=== PATIENT | male | born 1995 | race African-American/Black ===

== ENCOUNTER 2018-03-29 15:02 | Emergency (ER) | payer OTHER ==
[2018-03-29 15:25] VITALS: BP 100/57; PULSE 85; RESP 18; TEMP 98.3
--- NOTE | 2018-03-29 16:06 | ED ---
ENT HPI - General Chief complaint: ENT Stated complaint: Ear Pain Time Seen by Provider: 03/29/18 15:27 Source: patient, RN notes reviewed Mode of arrival: ambulatory Limitations: no limitations - History of Present Illness Initial comments: This a 22-year-old male with no past medical history presents today for chief complaint of right ear discomfort. Patient states that for the past 2 days he has is pain in his right ear and decreased hearing. He denies drainage from the ear, masses in front or behind the auricle, pain to palpation of the posterior ear, foreign body, dizziness, tinnitus, jaw pain, visual changes, rashes/lesions, fever, chills, sore throat, chest pain, shortness of breath, congestion, cough or any other symptoms. Patient is not tried anything in attempt to alleviate the pain. Patient presents today for evaluation. - Related Data Previous Rx's Medication Instructions Recorded Amoxicillin 500 mg PO Q12HR 7 Days #14 cap 03/29/18 Allergies Allergy/AdvReac Type Severity Reaction Status Date / Time No Known Allergies Allergy Verified 03/29/18 15:25 Review of Systems ROS Statement: Those systems with pertinent positive or pertinent negative responses have been documented in the HPI. ROS Other: All systems not noted in ROS Statement are negative. Constitutional: Denies: fever, chills, night sweats Eyes: Denies: eye discharge, vision change ENT: Reports: ear pain, hearing loss (decreased hearing). Denies: throat pain Respiratory: Denies: cough, dyspnea, wheezes, hemoptysis, stridor Cardiovascular: Denies: chest pain, palpitations Gastrointestinal: Denies: abdominal pain Genitourinary: Denies: urgency, dysuria Skin: Denies: rash, lesions Neurological: Denies: headache, weakness, confusion, vertigo Past Medical History Past Medical History: No Reported History History of Any Multi-Drug Resistant Organisms: None Reported Past Surgical History: No Surgical Hx Reported Past Psychological History: No Psychological Hx Reported Smoking Status: Never smoker Past Alcohol Use History: None Reported Past Drug Use History: Marijuana General Exam - General Exam Comments Initial Comments: General: The patient is awake and alert, in no distress, and does not appear acutely ill. Eye: Pupils are equal, round and reactive to light, extra-ocular movements are intact. No nystagmus. There is normal conjunctiva bilaterally. No signs of icterus. Ears, nose, mouth and throat: There are moist mucous membranes and no oral lesions. Excessive cerumen in the right ear however TM is visible it is pearly, cone of light and malleus present. No retract, bulging or erythema. EAC WNL of the ears b/l. TM no visible upon initial exam, cerumen impaction. No tenderness to palpation of the mastoid b/l. No preauricular LN b/l. Neck: The neck is supple, there is no tenderness or JVD. Cardiovascular: There is a regular rate and rhythm. No murmur, rub or gallop is appreciated. Respiratory: Lungs are clear to auscultation, respirations are non-labored, breath sounds are equal. No wheezes, stridor, rales, or rhonchi. Neurological: A&O x 3. CN II-XII intact, There are no obvious motor or sensory deficits. Coordination appears grossly intact. Speech is normal. Skin: Skin is warm and dry and no rashes or lesions are noted. Psychiatric: Cooperative, appropriate mood & affect, normal judgment. Limitations: no limitations Course Vital Signs 03/29/18 03/29/18 15:22 17:31 Temperature 98.3 F 98.3 F Pulse Rate 85 85 Respiratory 18 18 Rate Blood Pressure 100/57 100/57 O2 Sat by Pulse 99 99 Oximetry Medical Decision Making - Medical Decision Making Left ear was irrigated using 1/2 peroxide and water at room temperature by nursing staff. A moderate amount of cerumen was removed. Pt did not want to continue due to discomfort. A small portion of the TM was visualized, it was erythematous. This could have been caused by the irrigation process however given pt complaint of left ear pain, we gave amoxicillin for treatment of possible underlying AOM. Because full TM was no visualized pt was instructed to avoid water for possible TM perforation until clearance by primary provider, he understood instruction. Pt denied allergies, and agreed with plan. Case discussed with Dr. Rodriguez, pt was discharged in stable condition. Disposition Clinical Impression: Impacted cerumen, Otitis media Disposition: HOME SELF-CARE Condition: Good Instructions: Cerumen Impaction (ED), Ear Infection (ED) Additional Instructions: Please use medication as discussed. Please follow-up with referral as directed in the next 2 days of symptoms have not improved. Please return to emergency room if the symptoms increase or worsen or for any other concerns. Prescriptions: Amoxicillin 500 mg PO Q12HR 7 Days #14 cap Is patient prescribed a controlled substance at d/c from ED?: No Referrals: [facility] [NON-STAFF] - 1-2 days Time of Disposition: 17:21
== END 2018-03-29 17:31 | disposition home or self-care (01) ==
LOC: EC 15:02
DX: H61.21 Impacted cerumen, right ear (principal); H66.91 Otitis media, unspecified, right ear
CPT/HCPCS: 99282

== ENCOUNTER 2019-06-20 14:39 | Emergency (ER) | payer OTHER ==
[2019-06-20 14:42] VITALS: TEMP 97.8
[2019-06-20] MEDS ORDERED: SODIUM CHLORIDE 0.9% 1,000 ML IV STA ×2 (15:01)
[2019-06-20] MEDS: MECLIZINE 12.5 MG TAB PO STA ×2 (15:25→15:32)
[2019-06-20] MEDS: ONDANSETRON 4 MG/2 ML VIAL IVP STA ×2 (15:25→15:32)
--- NOTE | 2019-06-20 15:37 | ED ---
Dizziness HPI - General Chief Complaint: Dizziness Stated Complaint: Lightheaded/weak/neck pain Time Seen by Provider: 06/20/19 14:47 Source: patient, RN notes reviewed, old records reviewed Mode of arrival: ambulatory Limitations: no limitations - History of Present Illness Initial Comments: Patient is a 23-year-old male presents for a sore today with chief complaint of feeling lightheaded and nauseated and his heart racing. Patient reports the symptoms started after eating a fish sandwich and smoking a black and mild while work today. Patient denies any recent fever, chills, shortness of breath, chest pain, back pain, abdominal pain, nausea vomiting, numbness or tingling, dysuria or hematuria, constipation or diarrhea, headaches or visual changes, or any other current symptoms - Related Data Previous Rx's Medication Instructions Recorded Amoxicillin 500 mg PO Q12HR 7 Days #14 cap 03/29/18 Allergies Allergy/AdvReac Type Severity Reaction Status Date / Time No Known Allergies Allergy Verified 06/20/19 14:41 Review of Systems ROS Statement: Those systems with pertinent positive or pertinent negative responses have been documented in the HPI. ROS Other: All systems not noted in ROS Statement are negative. Past Medical History Past Medical History: No Reported History History of Any Multi-Drug Resistant Organisms: None Reported Past Surgical History: No Surgical Hx Reported Past Psychological History: No Psychological Hx Reported Smoking Status: Current every day smoker Past Alcohol Use History: Occasional Past Drug Use History: Marijuana General Exam - General Exam Comments Initial Comments: 23-year-old male. Alert and oriented. No distress. Limitations: no limitations General appearance: alert, in no apparent distress Head exam: Present: atraumatic, normocephalic, normal inspection Eye exam: Present: normal appearance, PERRL, EOMI. Absent: scleral icterus, conjunctival injection, periorbital swelling ENT exam: Present: normal exam, mucous membranes moist Neck exam: Present: normal inspection. Absent: tenderness, meningismus, lymphadenopathy Respiratory exam: Present: normal lung sounds bilaterally. Absent: respiratory distress, wheezes, rales, rhonchi, stridor Cardiovascular Exam: Present: regular rate, normal rhythm, normal heart sounds. Absent: systolic murmur, diastolic murmur, rubs, gallop, clicks GI/Abdominal exam: Present: soft, normal bowel sounds. Absent: distended, tenderness, guarding, rebound, rigid Course Vital Signs 06/20/19 06/20/19 14:40 16:00 Temperature 97.8 F Pulse Rate 112 H 92 Respiratory 20 17 Rate Blood Pressure 126/72 127/75 O2 Sat by Pulse 100 100 Oximetry EKG Findings - EKG Comments: EKG Findings:: EKG shows normal sinus rhythm, normal EKG. Ventricular rate of 80 bpm. Intervals 136 ms. QRS duration is 80 ms. QT QTc is 372/450 ms. Medical Decision Making - Medical Decision Making His is a 23-year-old male presents today for evaluation for concerns for feeling dizzy and lightheaded after eating and smoking at lunch today. Patient states he felt his heart was racing complaint of nausea. This was tachycardic when he arrived here. Complains of lightheadedness. He is given IV fluids EKG was reviewed and negative for any acute process. Urine drug screen is positive for marijuana the Patient reports that he expects this. Patient states that he has no other complaints at this time and denies any chest pain after receiving fluids. He is resting comfortably bed and requests a work note. Discussed following up with primary care doctor and the importance of smoking cessation. - Lab Data Result diagrams: 06/20/19 15:17 06/20/19 15:17 Lab Results 06/20/19 06/20/19 06/20/19 Range/Units 15:17 15:17 15:17 WBC 5.5 (3.8-10.6) k/uL RBC 5.15 (4.30-5.90) m/uL Hgb 15.6 (13.0-17.5) gm/dL Hct 46.9 (39.0-53.0) % MCV 91.1 (80.0-100.0) fL MCH 30.3 (25.0-35.0) pg MCHC 33.2 (31.0-37.0) g/dL RDW 12.5 (11.5-15.5) % Plt Count 224 (150-450) k/uL Neutrophils % 54 % Lymphocytes % 30 % Monocytes % 10 % Eosinophils % 1 % Basophils % 3 % Neutrophils # 2.9 (1.3-7.7) k/uL Lymphocytes # 1.7 (1.0-4.8) k/uL Monocytes # 0.5 (0-1.0) k/uL Eosinophils # 0.1 (0-0.7) k/uL Basophils # 0.2 (0-0.2) k/uL Sodium 140 (137-145) mmol/L Potassium 4.6 (3.5-5.1) mmol/L Chloride 108 H (98-107) mmol/L Carbon Dioxide 23 (22-30) mmol/L Anion Gap 9 mmol/L BUN 14 (9-20) mg/dL Creatinine 1.00 (0.66-1.25) mg/dL Est GFR (CKD-EPI)AfAm >90 (>60 ml/min/1.73 sqM) Est GFR (CKD-EPI)NonAf >90 (>60 ml/min/1.73 sqM) Glucose 120 H (74-99) mg/dL Calcium 9.3 (8.4-10.2) mg/dL Total Bilirubin 0.7 (0.2-1.3) mg/dL AST 36 (17-59) U/L ALT 14 L (21-72) U/L Alkaline Phosphatase 101 (38-126) U/L Troponin I <0.012 (0.000-0.034) ng/mL Total Protein 7.9 (6.3-8.2) g/dL Albumin 4.6 (3.5-5.0) g/dL Urine Color Urine Appearance (Clear) Urine pH (5.0-8.0) Ur Specific [place] (1.001-1.035) Urine Protein (Negative) Urine Glucose (UA) (Negative) Urine Ketones (Negative) Urine Blood (Negative) Urine Nitrite (Negative) Urine Bilirubin (Negative) Urine Urobilinogen (<2.0) mg/dL Ur Leukocyte Esterase (Negative) Urine Opiates Screen (NotDetected) Ur Oxycodone Screen (NotDetected) Urine Methadone Screen (NotDetected) Ur Propoxyphene Screen (NotDetected) Ur Barbiturates Screen (NotDetected) U Tricyclic Antidepress (NotDetected) Ur Phencyclidine Scrn (NotDetected) Ur Amphetamines Screen (NotDetected) U Methamphetamines Scrn (NotDetected) U Benzodiazepines Scrn (NotDetected) Urine Cocaine Screen (NotDetected) U Marijuana (THC) Screen (NotDetected) 06/20/19 Range/Units 16:00 WBC (3.8-10.6) k/uL RBC (4.30-5.90) m/uL Hgb (13.0-17.5) gm/dL Hct (39.0-53.0) % MCV (80.0-100.0) fL MCH (25.0-35.0) pg MCHC (31.0-37.0) g/dL RDW (11.5-15.5) % Plt Count (150-450) k/uL Neutrophils % % Lymphocytes % % Monocytes % % Eosinophils % % Basophils % % Neutrophils # (1.3-7.7) k/uL Lymphocytes # (1.0-4.8) k/uL Monocytes # (0-1.0) k/uL Eosinophils # (0-0.7) k/uL Basophils # (0-0.2) k/uL Sodium (137-145) mmol/L Potassium (3.5-5.1) mmol/L Chloride (98-107) mmol/L Carbon Dioxide (22-30) mmol/L Anion Gap mmol/L BUN (9-20) mg/dL Creatinine (0.66-1.25) mg/dL Est GFR (CKD-EPI)AfAm (>60 ml/min/1.73 sqM) Est GFR (CKD-EPI)NonAf (>60 ml/min/1.73 sqM) Glucose (74-99) mg/dL Calcium (8.4-10.2) mg/dL Total Bilirubin (0.2-1.3) mg/dL AST (17-59) U/L ALT (21-72) U/L Alkaline Phosphatase (38-126) U/L Troponin I (0.000-0.034) ng/mL Total Protein (6.3-8.2) g/dL Albumin (3.5-5.0) g/dL Urine Color Yellow Urine Appearance Clear (Clear) Urine pH 6.0 (5.0-8.0) Ur Specific [place] 1.030 (1.001-1.035) Urine Protein Trace H (Negative) Urine Glucose (UA) Negative (Negative) Urine Ketones Trace H (Negative) Urine Blood Negative (Negative) Urine Nitrite Negative (Negative) Urine Bilirubin Negative (Negative) Urine Urobilinogen 2.0 (<2.0) mg/dL Ur Leukocyte Esterase Negative (Negative) Urine Opiates Screen Not Detected (NotDetected) Ur Oxycodone Screen Not Detected (NotDetected) Urine Methadone Screen Not Detected (NotDetected) Ur Propoxyphene Screen Not Detected (NotDetected) Ur Barbiturates Screen Not Detected (NotDetected) U Tricyclic Antidepress Not Detected (NotDetected) Ur Phencyclidine Scrn Not Detected (NotDetected) Ur Amphetamines Screen Not Detected (NotDetected) U Methamphetamines Scrn Not Detected (NotDetected) U Benzodiazepines Scrn Not Detected (NotDetected) Urine Cocaine Screen Not Detected (NotDetected) U Marijuana (THC) Screen Detected H (NotDetected) Disposition Clinical Impression: Dizziness Disposition: HOME SELF-CARE Condition: Good Instructions (If sedation given, give patient instructions): Dizziness (ED) Additional Instructions: Drink plenty of fluids, patient should stop smoking. Please follow up with family doctor if symptoms have not improved over the next two days. Please return to the emergency room if your symptoms increase or worsen or for any other concerns. Is patient prescribed a controlled substance at d/c from ED?: No Referrals: None,Stated [Primary Care Provider] - 1-2 days Nela Jarrell MD [STAFF PHYSICIAN] - 1-2 days Time of Disposition: 16:40
[2019-06-20 16:01] LABS: Basophils # (A) 0.2 k/uL (0-0.2); Basophils % (A) 3 %; Eosinophils # (A) 0.1 k/uL (0-0.7); Eosinophils % (A) 1 %; HCT 46.9 % (39.0-53.0); HGB 15.6 gm/dL (13.0-17.5); Lymphocytes # (A) 1.7 k/uL (1.0-4.8); Lymphocytes % (A) 30 %; MCH 30.3 pg (25.0-35.0); MCHC 33.2 g/dL (31.0-37.0); MCV 91.1 fL (80.0-100.0); Mean Platelet Volume 6.3; Monocytes # (A) 0.5 k/uL (0-1.0); Monocytes % (A) 10 %; Neutrophils # (A) 2.9 k/uL (1.3-7.7); Neutrophils % (A) 54 %; Platelet Count 224 k/uL (150-450); RBC 5.15 m/uL (4.30-5.90); RDW 12.5 % (11.5-15.5); WBC 5.5 k/uL (3.8-10.6)
[2019-06-20 16:04] VITALS: PULSE 92
[2019-06-20 16:06] LABS: ALT 14 U/L (21-72); AST 36 U/L (17-59); African American GFR (CKD) >90 (>60 ml/min/1.73 sqM); Albumin 4.6 g/dL (3.5-5.0); Alkaline Phosphatase 101 U/L (38-126); Anion Gap 9 mmol/L; Blood Urea Nitrogen 14 mg/dL (9-20); Calcium 9.3 mg/dL (8.4-10.2); Carbon Dioxide 23 mmol/L (22-30); Chloride 108 mmol/L (98-107); Glucose 120 mg/dL (74-99); Non-African American GFR(CKD) >90 (>60 ml/min/1.73 sqM); Potassium 4.6 mmol/L (3.5-5.1); Sodium 140 mmol/L (137-145); Total Bilirubin 0.7 mg/dL (0.2-1.3); Total Protein 7.9 g/dL (6.3-8.2)
[2019-06-20 16:07] LABS: Amphetamine Screen,Urine Not Detected (NotDetected); Barbiturate Screen,Urine Not Detected (NotDetected); Benzodiazepines Screen,Urine Not Detected (NotDetected); Cocaine Screen,Urine Not Detected (NotDetected); Methadone Screen, Urine Not Detected (NotDetected); Opiate Screen,Urine Not Detected (NotDetected); Oxycodone Screen, Urine Not Detected (NotDetected); Phencyclidine Screen,Urine Not Detected (NotDetected); Tricyclic Antidepressant,Urine Not Detected (NotDetected); Urn Cannabinoid Scrn Detected (NotDetected)
[2019-06-20 16:25] LABS: Appearance,Urine Clear (Clear); Bilirubin,Urine Negative (Negative); Blood,Urine Negative (Negative); Color,Urine Yellow; Glucose,Urine (UA) Negative (Negative); Ketones,Urine Trace (Negative); Leukocyte Esterase,Urine Negative (Negative); Nitrite,Urine Negative (Negative); Protein,Urine Trace (Negative)
[2019-06-20 16:47] VITALS: BP 100/71; RESP 18
== END 2019-06-20 16:50 | disposition home or self-care (01) ==
LOC: EC 14:39
DX: R42 Dizziness and giddiness (principal); R00.0 Tachycardia, unspecified; R11.0 Nausea; F12.929 Cannabis use, unspecified with intoxication, unspecified; F17.200 Nicotine dependence, unspecified, uncomplicated; Z71.6 Tobacco abuse counseling; Z53.20 Procedure and treatment not carried out because of patient's decision for unspecified reasons
CPT/HCPCS: 36415; 80053; 80306; 81003; 84484; 85025; 85610; 93005; 96360; 99284

== ENCOUNTER 2020-07-05 00:56 | Emergency (ER) | payer OTHER ==
[2020-07-05 01:00] VITALS: BP 119/73; PULSE 86; RESP 18; TEMP 97.6
[2020-07-05] MEDS ORDERED: KETOROLAC 15 MG/ML 1 ML VIAL IM STA (01:15)
[2020-07-05] MEDS ORDERED: ORPHENADRINE 30 MG/ML 2 ML VIAL IM STA (01:15)
--- NOTE | 2020-07-05 01:26 | ED ---
Back Pain HPI - General Chief Complaint: Back Pain/Injury Stated Complaint: Back Pain Time Seen by Provider: 07/05/20 01:00 Source: patient, RN notes reviewed, old records reviewed Limitations: no limitations - History of Present Illness Initial Comments: 24-year-old male presents emergency Department today with complaints of thoracic and lower back pain as well reproducible back pain with taking a deep breath. Patient states that he is having symptoms for the past 2 days. He has not taken any Motrin or Tylenol. Denies cough or fever. Denies any history of sick contacts. Patient denies any nausea or vomiting or abdominal pain. He denies any change in urination. Patient does not remember any heavy lifting or twisting to cause pain. - Related Data Previous Rx's Medication Instructions Recorded Amoxicillin 500 mg PO Q12HR 7 Days #14 cap 03/29/18 Cyclobenzaprine [Flexeril] 10 mg PO TID #12 tab 07/05/20 Ibuprofen [Motrin] 600 mg PO Q6HR PRN #20 tab 07/05/20 Allergies Allergy/AdvReac Type Severity Reaction Status Date / Time No Known Allergies Allergy Verified 07/05/20 00:59 Review of Systems ROS Statement: Those systems with pertinent positive or pertinent negative responses have been documented in the HPI. ROS Other: All systems not noted in ROS Statement are negative. Past Medical History Past Medical History: No Reported History History of Any Multi-Drug Resistant Organisms: None Reported Past Surgical History: No Surgical Hx Reported Past Psychological History: No Psychological Hx Reported Smoking Status: Current some day smoker Past Alcohol Use History: Occasional Past Drug Use History: Marijuana General Exam - General Exam Comments Initial Comments: 24 year old male. Limitations: no limitations General appearance: alert, in no apparent distress Head exam: Present: atraumatic, normocephalic, normal inspection Eye exam: Present: normal appearance, PERRL, EOMI. Absent: scleral icterus, conjunctival injection, periorbital swelling ENT exam: Present: normal exam, mucous membranes moist Neck exam: Present: normal inspection. Absent: tenderness, meningismus, lymphadenopathy Respiratory exam: Present: normal lung sounds bilaterally. Absent: respiratory distress, wheezes, rales, rhonchi, stridor Cardiovascular Exam: Present: regular rate, normal rhythm, normal heart sounds. Absent: systolic murmur, diastolic murmur, rubs, gallop, clicks GI/Abdominal exam: Present: soft, normal bowel sounds. Absent: distended, tenderness, guarding, rebound, rigid Extremities exam: Present: normal inspection, full ROM, normal capillary refill. Absent: tenderness, pedal edema, joint swelling, calf tenderness Back exam: Present: normal inspection, tenderness (Is tenderness over the thoracic paraspinal muscles) Neurological exam: Present: alert, oriented X3, CN II-XII intact Psychiatric exam: Present: normal affect, normal mood Skin exam: Present: warm, dry, intact, normal color. Absent: rash Course Vital Signs 07/05/20 00:57 Temperature 97.6 F Pulse Rate 86 Respiratory 18 Rate Blood Pressure 119/73 O2 Sat by Pulse 99 Oximetry Medical Decision Making - Medical Decision Making 19-year-old male presents with muscle skeletal back pain for the past 4 days. Is given IM Toradol and Norflex as report improvement. X-rays of the chest due to some pain and lower rib showed no signs of effusion or any fracture. Patient was advised his muscle spasm and to take anti-inflammatory medicine. Discussed return parameters. All questions answered. - Radiology Data Radiology results: report reviewed Normal chest x-ray. Disposition Clinical Impression: Back strain Disposition: HOME SELF-CARE Condition: Good Instructions (If sedation given, give patient instructions): Acute Low Back Pain (ED) Additional Instructions: Take the medication as prescribed. Follow-up with your primary care doctor symptoms continue to persist. Prescriptions: Cyclobenzaprine [Flexeril] 10 mg PO TID #12 tab Ibuprofen [Motrin] 600 mg PO Q6HR PRN #20 tab PRN Reason: Pain Is patient prescribed a controlled substance at d/c from ED?: No Referrals: None,Stated [Primary Care Provider] - 1-2 days Time of Disposition: 01:45
--- NOTE | 2020-07-05 01:37 | XR ---
EXAM: XR Chest, 2 Views CLINICAL HISTORY: Pain. TECHNIQUE: Frontal and lateral views of the chest. COMPARISON: June 09, 2015 FINDINGS: Lungs: Unremarkable. No infiltration, atelectasis or mass density. Pleural space: Unremarkable. No pneumothorax. No pleural fluid. Heart: Unremarkable. No cardiomegaly. Mediastinum: Unremarkable. Bones/joints: Unremarkable. No acute abnormalities. IMPRESSION: Negative chest x-rays.
== END 2020-07-05 02:15 | disposition home or self-care (01) ==
LOC: EC 00:56
DX: S39.012A Strain of muscle, fascia and tendon of lower back, initial encounter (principal); M54.6 Pain in thoracic spine; F17.200 Nicotine dependence, unspecified, uncomplicated; X50.9XXA Other and unspecified overexertion or strenuous movements or postures, initial encounter
CPT/HCPCS: 99284; 96372 ×2; 71046; J2360; J1885